=== PATIENT | female | born 1970 | race Caucasian/White ===

== ENCOUNTER 2017-05-18 10:42 | Emergency (ER) | payer SELFPAY ==
[~2017-05-18] VITALS: Ht 157.5 cm; Wt 87.7 kg
[~2017-05-18 10:42] MED LIST: HYDR-2376 PO; PRIL20CA9 PO; PROZ20CA11 PO; VENTAER INH; XANA1TAB2 PO; ZYRT10CA PO
[2017-05-18 10:53] VITALS: BP 123/71; PULSE 78; RESP 18; TEMP 97.6; O2SAT 99
[2017-05-18] MEDS ORDERED: OMEP20TA PO (11:23)
[2017-05-18] MEDS ORDERED: LEVO50TA4 PO (11:23)
[2017-05-18] MEDS ORDERED: MONT10TA2 PO (11:23)
[2017-05-18] MEDS ORDERED: CEPH-460 PO (11:30)
[2017-05-18] MEDS ORDERED: BACT800T5 PO (11:30)
--- NOTE | 2017-05-18 11:30 | PD ---
HPI Chief Complaint: Skin Problem Time Seen by Provider: 11:08 Travel History International Travel<30 days: No Contact w/Intl Traveler<30days: No Traveled to known affect area: No History of Present Illness HPI 47-year-old female presents to the emergency department for evaluation of possible infected insect bite on her left upper extremity. Patient reports yesterday evening she felt insect bite near her left elbow. When she awoke this morning she noticed redness to the left upper extremity. She reports mild pain and tenderness of the site which is nonradiating, no aggravating or alleviating factors, severity 3/10. She denies fever or chills. She denies any pain within the joint she has full range of motion. PFSH Past Medical History Hx Anticoagulant Therapy: No Arthritis: No Asthma: Yes Autoimmune Disease: No Blood Disorders: No Anxiety: Yes Depression: No Heart Rhythm Problems: No Cancer: No Cardiovascular Problems: No High Cholesterol: No Chemotherapy: No Chest Pain: No Congestive Heart Failure: No COPD: Yes Cerebrovascular Accident: No Diabetes: No Diminished Hearing: No Endocrine: Yes Gastrointestinal Disorders: Yes GERD: Yes Glaucoma: No Genitourinary: No Headaches: No Hepatitis: No Hiatal Hernia: Yes Hypertension: No Immune Disorder: No Kidney Stones: No Musculoskeletal: Yes ("back problems,lots of herniations and bulging discs") Neurologic: No Psychiatric: Yes Reproductive: No Respiratory: Yes (ASTHMA) Migraines: No Myocardial Infarction: No Radiation Therapy: No Renal Failure: No Seizures: No Sickle Cell Disease: No Sleep Apnea: No Thyroid Disease: Yes Ulcer: No ?: Not Menopausal: Yes : 1 Para: 0 Miscarriage: 1 : 0 Dilation and Curettage (D&C): Yes Past Surgical History Abdominal Surgery: Yes (2004,"lapband done in [place]" LAP BAND REMOVED 2009) AICD: No Appendectomy: No Arteriovenous Shunt: No Cardiac Surgery: No Cholecystectomy: No Ear Surgery: No Endocrine Surgery: No Eye Surgery: No Genitourinary Surgery: No Gynecologic Surgery: Yes (HYSTERECTOMY & D/C) Hysterectomy: Yes Insulin Pump: No Joint Replacement: No Oral Surgery: No Pacemaker: No Thoracic Surgery: No Other Surgery: Yes (LAP BAND;gastric sleeve) Social History Alcohol Use: Yes ("SOCIALLY") Tobacco Use: No (quit jul 2016) Substance Use: No Allergies-Medications (Allergen,Severity, Reaction): Coded Allergies: Dilaudid (Verified Adverse Reaction, Intermediate, Itching, 05/18/17) Reported Meds & Prescriptions Reported Meds & Active Scripts Active Reported Ventolin Hfa 18 GM Inh (Albuterol Sulfate) 90 Mcg/Act Aer 2 Puff INH Q4-6H PRN Zyrtec Allergy (Cetirizine HCl) 10 Mg Cap 10 Mg PO DAILY Prozac (Fluoxetine HCl) 20 Mg Cap 20 Mg PO DAILY Prilosec (Omeprazole) 20 Mg Cap 20 Mg PO DAILY Hydrocodone-Acetaminophen 7.5-300 Mg Tab 1 Tab PO Q6H PRN Xanax (Alprazolam) 1 Mg Tab 1 Mg PO TID Review of Systems Except as stated in HPI: all other systems reviewed are Neg General / Constitutional: No: Fever Eyes: No: Visual changes HENT: No: Headaches Cardiovascular: No: Chest Pain or Discomfort Respiratory: No: Shortness of Breath Gastrointestinal: No: Abdominal Pain Genitourinary: No: Dysuria Musculoskeletal: No: Pain Neurologic: No: Weakness Physical Exam Narrative GENERAL: Well-nourished, well-developed patient. SKIN: Focused skin assessment warm/dry. Well demarcated area of erythema overlying the left elbow. There is no warmth, induration, fluctuance or lymphangitis. HEAD: Normocephalic. EYES: No scleral icterus. No injection or drainage. NECK: Supple, trachea midline. No JVD or lymphadenopathy. CARDIOVASCULAR: Regular rate and rhythm without murmurs, gallops, or rubs. RESPIRATORY: Breath sounds equal bilaterally. No accessory muscle use. GASTROINTESTINAL: Abdomen soft, non-tender, nondistended. MUSCULOSKELETAL: No cyanosis, or edema. Left upper extremity : Well demarcated area of erythema overlying the left elbow. There is no warmth, induration, fluctuance or lymphangitis. There is no joint effusion. Patient has full painless range of motion of the left elbow. BACK: Nontender without obvious deformity. No CVA tenderness. Data Data Last Documented VS Vital Signs Date Time Temp Pulse Resp B/P Pulse Ox O2 Delivery O2 Flow Rate FiO2 05/18/17 10:53 97.6 78 18 123/71 99 MDM Medical Decision Making Medical Screen Exam Complete: Yes Emergency Medical Condition: Yes Differential Diagnosis Infected insect bite, cellulitis, abscess, clinically unlikely septic joint Narrative Course 47-year-old female with chief complaint of erythema and mild pain overlying the left elbow. Patient reports she was bitten by an unknown insect last night. She denies fever or chills. On physical exam she has a well-demarcated area of erythema consistent with cellulitis overlying the left elbow. No joint involvement is suspected. Patient will be put on antibiotics, wound was marked by the patient, she is advised to follow-up with her primary care physician in 2 days for recheck. Advised to return prior if she develops new or worsening symptoms. Patient verbalizes understanding and agrees to plan. Diagnosis Primary Impression: Cellulitis Qualified Code: L03.114 - Cellulitis of left upper extremity Referrals: Primary Care Physician Additional Instructions: Take the antibiotics as prescribed. Follow-up with her doctor in 1-2 days for recheck. Return to the emergency department if he developed new or worsening symptoms such as increasing pain, increasing redness, fever or chills. Scripts Cephalexin (Keflex)500 Mg Seb209 Mg PO Q6H #40 CAP Prov:Radha Rae 05/18/17 Sulfamethoxazole-Trimethoprim (Bactrim DS)800-160 Mg Tab1 Tab PO BID #20 TAB Prov:Radha Rae 05/18/17 Disposition: 01 DISCHARGE HOME Condition: Stable Radha Rae May 18, 2017 11:30
[2017-05-18] MEDS ORDERED: ONDANSETRON ODT 4 MG TAB PO ONE (11:45)
== END 2017-05-18 12:12 | disposition home or self-care (01) ==
LOC: PHED 10:42
DX: L03.114 Cellulitis of left upper limb (principal)
CPT/HCPCS: 99284

== ENCOUNTER 2018-01-28 13:48 | Emergency (ER) | payer SELFPAY ==
[~2018-01-28] VITALS: Ht 157.5 cm; Wt 90.0 kg
[~2018-01-28 13:48] MED LIST changes: +BACT800T5 PO; +CEPH-460 PO; +LEVO50TA4 PO; +MONT10TA2 PO; +OMEP20TA93 PO; -PRIL20CA9 PO; -ZYRT10CA PO
[2018-01-28 13:54] VITALS: BP 134/86; PULSE 89; RESP 30; TEMP 97.8; O2SAT 100
[2018-01-28 14:03] VITALS: BP 134/86; PULSE 88; RESP 16; TEMP 97.8; O2SAT 98
[2018-01-28] MEDS ORDERED: SODIUM CHLORIDE 0.9% FLUSH 10 ML FLUSH IV FLUSH PRN (14:15)
[2018-01-28] MEDS ORDERED: SODIUM CHLOR 0.9% 1000 ML INJ 1,000 ML IV ONE (14:15)
[2018-01-28] MEDS ORDERED: ONDANSETRON HCL 4 MG/2 ML VIAL IV PUSH ONE (14:15)
[2018-01-28] MEDS ORDERED: KETOROLAC TROMETHAMINE 30 MG/ML (IVP) VIAL IV PUSH ONE (14:15)
--- NOTE | 2018-01-28 14:19 | PD ---
HPI Chief Complaint: Flank/Kidney Pain Time Seen by Provider: 14:14 Travel History International Travel<30 days: No Contact w/Intl Traveler<30days: No Traveled to known affect area: No History of Present Illness HPI 47-year-old female patient with history of gastric sleeve, presents to the ER today with right flank pain that started about 45 minutes prior to arrival, nausea, vomiting, states her pain is currently a 12 out of 10. She denies any diarrhea, urinary symptoms, or other symptoms. She has never had pain like this before. Modifying Factors: None Associated Signs & Symptoms: right flank pains, nausea and vomiting Risk Factors: None PFSH Past Medical History Hx Anticoagulant Therapy: No Arthritis: No Asthma: Yes Autoimmune Disease: No Blood Disorders: No Anxiety: Yes Depression: No Heart Rhythm Problems: No Cancer: No Cardiovascular Problems: No High Cholesterol: No Chemotherapy: No Chest Pain: No Congestive Heart Failure: No COPD: Yes Cerebrovascular Accident: No Diabetes: No Diminished Hearing: No Endocrine: Yes Gastrointestinal Disorders: Yes GERD: Yes Glaucoma: No Genitourinary: No Headaches: No Hepatitis: No Hiatal Hernia: Yes Hypertension: No Immune Disorder: No Kidney Stones: No Musculoskeletal: Yes ("back problems,lots of herniations and bulging discs") Neurologic: No Psychiatric: Yes Reproductive: No Respiratory: Yes (ASTHMA) Immunizations Current: No Migraines: No Myocardial Infarction: No Radiation Therapy: No Renal Failure: No Seizures: No Sickle Cell Disease: No Sleep Apnea: No Thyroid Disease: Yes Ulcer: No Tetanus Vaccination: Unknown Influenza Vaccination: No ?: Not Menopausal: Yes : 1 Para: 0 Miscarriage: 1 : 0 Dilation and Curettage (D&C): Yes Past Surgical History Abdominal Surgery: Yes (2004,"lapband done in [place]" LAP BAND REMOVED 2009) AICD: No Appendectomy: No Arteriovenous Shunt: No Cardiac Surgery: No Cholecystectomy: No Ear Surgery: No Endocrine Surgery: No Eye Surgery: Yes (lasix) Genitourinary Surgery: No Gynecologic Surgery: Yes (HYSTERECTOMY & D/C) Hysterectomy: Yes Insulin Pump: No Joint Replacement: No Oral Surgery: No Pacemaker: No Thoracic Surgery: No Other Surgery: Yes (LAP BAND;gastric sleeve) Social History Alcohol Use: Yes ("SOCIALLY") Tobacco Use: Yes (occ) Substance Use: No Allergies-Medications (Allergen,Severity, Reaction): Coded Allergies: hydromorphone (Unverified Adverse Reaction, Intermediate, Itching, 01/28/18 ) Reported Meds & Prescriptions Reported Meds & Active Scripts Active Reported Levothyroxine (Levothyroxine Sodium) 50 Mcg Tab 50 Mcg PO DAILY Omeprazole 20 Mg Tab 20 Mg PO DAILY Prozac (Fluoxetine HCl) 20 Mg Cap 20 Mg PO DAILY Xanax (Alprazolam) 1 Mg Tab 1 Mg PO TID Review of Systems Except as stated in HPI: all other systems reviewed are Neg Physical Exam Narrative GENERAL: Well-developed middle-age female patient currently in moderate distress. Awake and oriented 3. SKIN: Focused skin assessment warm/dry. HEAD: Atraumatic. Normocephalic. EYES: Pupils equal and round. No scleral icterus. No injection or drainage. ENT: No nasal bleeding or discharge. Mucous membranes pink and moist. NECK: Trachea midline. No JVD. CARDIOVASCULAR: Regular rate and rhythm. No murmur appreciated. RESPIRATORY: No accessory muscle use. Clear to auscultation. Breath sounds equal bilaterally. GASTROINTESTINAL: Abdomen soft, non-tender, nondistended. Hepatic and splenic margins not palpable. BACK: Right CVA tenderness. No rash. No point tenderness on palpation of the spine. MUSCULOSKELETAL: No obvious deformities. No clubbing. No cyanosis. No edema. NEUROLOGICAL: Awake and alert. No obvious cranial nerve deficits. Motor grossly within normal limits. Normal speech. PSYCHIATRIC: Appropriate mood and affect; insight and judgment normal. Data Data Last Documented VS Vital Signs Date Time Temp Pulse Resp B/P (MAP) Pulse Ox O2 Delivery O2 Flow Rate FiO2 01/28/18 14:52 98 Room Air 01/28/18 14:03 97.8 88 16 Orders Orders Complete Blood Count With Diff (01/28/18 14:14) Comprehensive Metabolic Panel (01/28/18 14:14) Lipase (01/28/18 14:14) Urinalysis - C+S If Indicated (01/28/18 14:14) Ct Abd/Pel W/O Iv Contrast (01/28/18 14:14) Iv Access Insert/Monitor (01/28/18 14:14) Ecg Monitoring (01/28/18 14:14) Oximetry (01/28/18 14:14) Sodium Chloride 0.9% Flush (Ns Flush) (01/28/18 14:15) Sodium Chlor 0.9% 1000 Ml Inj (Ns 1000 M (01/28/18 14:15) Ketorolac Inj (Toradol Inj) (01/28/18 14:15) Ondansetron Inj (Zofran Inj) (01/28/18 14:15) Morphine Inj (Morphine Inj) (01/28/18 15:00) Morphine Inj (Morphine Inj) (01/28/18 15:15) Labs Laboratory Tests Test 01/28/18 14:32 01/28/18 16:20 White Blood Count 6.6 TH/MM3 Red Blood Count 3.89 MIL/MM3 Hemoglobin 12.5 GM/DL Hematocrit 37.6 % Mean Corpuscular Volume 96.8 FL Mean Corpuscular Hemoglobin 32.3 PG Mean Corpuscular Hemoglobin Concent 33.3 % Red Cell Distribution Width 13.9 % Platelet Count 265 TH/MM3 Mean Platelet Volume 9.6 FL Neutrophils (%) (Auto) 44.8 % Lymphocytes (%) (Auto) 40.3 % Monocytes (%) (Auto) 8.5 % Eosinophils (%) (Auto) 4.1 % Basophils (%) (Auto) 2.3 % Neutrophils # (Auto) 2.8 TH/MM3 Lymphocytes # (Auto) 2.7 TH/MM3 Monocytes # (Auto) 0.6 TH/MM3 Eosinophils # (Auto) 0.3 TH/MM3 Basophils # (Auto) 0.2 TH/MM3 CBC Comment DIFF FINAL Differential Comment Blood Urea Nitrogen 13 MG/DL Creatinine 0.70 MG/DL Random Glucose 91 MG/DL Total Protein 7.3 GM/DL Albumin 3.4 GM/DL Calcium Level 8.5 MG/DL Alkaline Phosphatase 63 U/L Aspartate Amino Transf (AST/SGOT) 23 U/L Alanine Aminotransferase (ALT/SGPT) 20 U/L Total Bilirubin 0.4 MG/DL Sodium Level 140 MEQ/L Potassium Level 3.5 MEQ/L Chloride Level 110 MEQ/L Carbon Dioxide Level 22.1 MEQ/L Anion Gap 8 MEQ/L Estimat Glomerular Filtration Rate 89 ML/MIN Lipase 162 U/L Urine Color YELLOW Urine Turbidity CLEAR Urine pH 7.5 Urine Specific [place] 1.010 Urine Protein NEG mg/dL Urine Glucose (UA) NEG mg/dL Urine Ketones 80 OR GREATER mg/dL Urine Occult Blood NEG Urine Nitrite NEG Urine Bilirubin NEG Urine Urobilinogen 0.2 MG/DL Urine Leukocyte Esterase NEG Urine RBC 0-3 /hpf Urine WBC 0-2 /hpf Urine Squamous Epithelial Cells 0-5 /hpf Microscopic Urinalysis Comment CULT NOT INDICATED MDM Medical Decision Making Medical Screen Exam Complete: Yes Emergency Medical Condition: Yes Medical Record Reviewed: Yes Interpretation(s) Laboratory Tests Test 01/28/18 14:32 01/28/18 16:20 Red Blood Count 3.89 MIL/MM3 (4.00-5.30) Monocytes (%) (Auto) 8.5 % (0.0-8.0) Eosinophils (%) (Auto) 4.1 % (0.0-4.0) Basophils (%) (Auto) 2.3 % (0.0-2.0) Chloride Level 110 MEQ/L (98-107) Urine Ketones 80 OR GREATER mg/dL (NEG) Last 24 hours Impressions Abdomen/Pelvis CT 01/28/18 1414 Signed Impressions: Service Date/Time: , January 28, 2018 15:11 - CONCLUSION: Solitary gallstone and a small stone in the left kidney otherwise unremarkable study. Manish Marin MD Differential Diagnosis Renal colic versus muscular skeletal versus other acute intra-abdominal processes versus UTI/pyelonephritis Narrative Course Lab work was fairly unremarkable. She did not have a UTI. testing is negative. CAT scan shows a large gallstone and a left-sided kidney stone but was fairly unremarkable otherwise. At this point, the cause of her pain is not obviously seen on CAT scan. Patient had been given Toradol, 2 mg of morphine 2, and vital signs are stable in the ER, and on reevaluation at 5:30 PM she is feeling improved. At this point, my plan would be to release her with further symptomatic relief or pain and follow-up to primary care doctor. I have talked her about pain relief with ibuprofen but she states that she already has ibuprofen at home and also states that she has a gastric sleeve surgery, states that she has not really supposed to be on ibuprofen, asked me to give her something else. I will be giving her Flexeril and have asked her to use Tylenol for pain as needed. We will also give her nausea medication. She should return for any worsening in symptoms as needed. The plan was discussed with her and she states understanding. Diagnosis Primary Impression: Right flank pain Additional Impression: Cholelithiasis Med/Other Pt SpecificInfo: Prescription(s) given Scripts Ondansetron Odt (Zofran Odt) 4 Mg Tab 4 MG SL Q6HR Y for Nausea/Vomiting, #7 TAB 0 Refills Prov: Kasia De La Rosa MD 01/28/18 Cyclobenzaprine (Flexeril) 10 Mg Tab 10 MG PO TID for Muscle Spasm, #12 TAB 0 Refills Prov: Kasia De La Rosa MD 01/28/18 Disposition: 01 DISCHARGE HOME Condition: Stable Kasia De La Rosa MD Jan 28, 2018 14:19
[2018-01-28 14:52] VITALS: O2SAT 98
[2018-01-28 14:59] LABS: CHLORIDE 110 MEQ/L (98-107); SODIUM (NA) 140 MEQ/L (136-145)
[2018-01-28] MEDS ORDERED: MORPHINE SULFATE 2 MG/ML SYRINGE IV PUSH ONE ×2 (15:00→15:15)
[2018-01-28 15:03] LABS: ALBUMIN 3.4 GM/DL (3.4-5.0); BICARBONATE 22.1 MEQ/L (21.0-32.0); BLOOD UREA NITROGEN 13 MG/DL (7-18); CALCIUM 8.5 MG/DL (8.5-10.1); GLUCOSE,RANDOM 91 MG/DL (74-106)
[2018-01-28 15:06] LABS: ALT (GPT) 20 U/L (10-53); AST (GOT) 23 U/L (15-37); GLOMERULAR FILTRATION RATE 89 ML/MIN (>89)
[2018-01-28 15:07] LABS: TOTAL BILIRUBIN ADULT 0.4 MG/DL (0.2-1.0)
[2018-01-28 15:08] LABS: TOTAL PROTEIN 7.3 GM/DL (6.4-8.2)
[2018-01-28 15:09] LABS: ALKALINE PHOSPHATASE 63 U/L (45-117)
--- NOTE | 2018-01-28 15:27 | RADRPT ---
EXAM DATE/TIME: 01/28/2018 15:11 [facility] COMPARISON: No previous studies available for comparison. INDICATIONS : Right flank pain. ORAL CONTRAST: No oral contrast ingested. RADIATION DOSE: 13.07 CTDIvol (mGy) MEDICAL HISTORY : Chronic obstructive pulmonary disease. Gastroesophageal reflux disease. Asthma. SURGICAL HISTORY : Hysterectomy. Lap band. ENCOUNTER: Initial ACUITY: 1 day PAIN SCALE: 10/10 LOCATION: Right flank TECHNIQUE: Volumetric scanning of the abdomen and pelvis was performed. Using automated exposure control and ad justment of the mA and/or kV according to patient size, radiation dose was kept as low as reasonably achievable to obtain optimal diagnostic quality images. DICOM format image data is available electro nically for review and comparison. FINDINGS: LOWER LUNGS: The visualized lower lungs are clear. LIVER: Homogeneous density without lesion. There is no dilation of the biliary tree. Solitary calcified gal lstone. SPLEEN: Normal size without lesion. PANCREAS: Within normal limits. KIDNEYS: Normal in size and shape. There is no mass, or hydronephrosis. Solitary stone mid pole left kidney. ADRENAL GLANDS: Within normal limits. VASCULAR: There is no aortic aneurysm. BOWEL/MESENTERY: The stomach, small bowel, and colon demonstrate no acute abnormality. There is no free intraperitone al air or fluid. ABDOMINAL WALL: Within normal limits. RETROPERITONEUM: There is no lymphadenopathy. BLADDER: No wall thickening or mass. REPRODUCTIVE: Within normal limits. INGUINAL: There is no lymphadenopathy or hernia. MUSCULOSKELETAL: Within normal limits for patient age. CONCLUSION: Solitary gallstone and a small stone in the left kidney otherwise unremarkable study. Manish Marin MD on January 28, 2018 at 15:23 Board Certified Radiologist. This report was verified electronically.
[2018-01-28 16:52] LABS: AUTOMATED NEUTROPHIL # 2.8 TH/MM3 (1.8-7.7); BASOPHIL # 0.2 TH/MM3 (0-0.2); BASOPHIL % 2.3 % (0.0-2.0); EOSINOPHIL # 0.3 TH/MM3 (0-0.4); EOSINOPHIL % 4.1 % (0.0-4.0); HEMATOCRIT 37.6 % (35.0-46.0); HEMOGLOBIN 12.5 GM/DL (11.6-15.3); LYMPH % 40.3 % (9.0-44.0); LYMPHOCYTE # 2.7 TH/MM3 (1.0-4.8); MEAN CELL VOLUME 96.8 FL (80.0-100.0); MEAN CORPUSCULAR HEMOGLOBIN 32.3 PG (27.0-34.0); MEAN CORPUSCULAR HGB CONC 33.3 % (32.0-36.0); MEAN PLATELET VOLUME 9.6 FL (7.0-11.0); MONO % 8.5 % (0.0-8.0); MONOCYTE # 0.6 TH/MM3 (0-0.9); NEUT % 44.8 % (16.0-70.0); PLATELET COUNT 265 TH/MM3 (150-450); RED BLOOD COUNT 3.89 MIL/MM3 (4.00-5.30); RED CELL DISTRIBUTION WIDTH 13.9 % (11.6-17.2); WHITE BLOOD COUNT 6.6 TH/MM3 (4.0-11.0)
[2018-01-28 16:59] LABS: BILIRUBIN, URINE NEG (NEG); BLOOD, URINE NEG (NEG); GLUCOSE,URINE NEG (NEG); KETONE, URINE 80 OR GREATER mg/dL (NEG); NITRITE,URINE NEG (NEG); PH, URINE 7.5 (5.0-8.5); URINE COLOR YELLOW (YELLW/STRAW); URINE LEUKOCYTE ESTERASE NEG (NEG)
[2018-01-28 17:14] LABS: RBC, URINE 0-3 /hpf (0-3); SQUAMOUS EPITHELIAL CELL URINE 0-5 /hpf (0-5); WBC, URINE 0-2 /hpf (0-5)
[2018-01-28] MEDS ORDERED: ZOFR4TAB3 SL (17:35)
[2018-01-28] MEDS ORDERED: CYCL10TA PO (17:35)
== END 2018-01-28 17:44 | disposition home or self-care (01) ==
LOC: PHED 13:48
DX: K80.20 Calculus of gallbladder without cholecystitis without obstruction (principal); N20.0 Calculus of kidney; F41.9 Anxiety disorder, unspecified; J44.9 Chronic obstructive pulmonary disease, unspecified; K21.9 Gastro-esophageal reflux disease without esophagitis; E07.9 Disorder of thyroid, unspecified; Z72.0 Tobacco use; Z88.5 Allergy status to narcotic agent; Z79.899 Other long term (current) drug therapy
CPT/HCPCS: 74176; 80053; 81001; 83690; 85025; 96361; 96374; 96375; 96376; 99284; J1885; J2270; J2405; J7030